=== PATIENT | female | born 1950 | race Caucasian/White ===

== ENCOUNTER 2016-09-12 10:50 | Observation (INO) | payer MEDICARE, OTHER ==
[~2016-09-12] VITALS: Ht 165.1 cm; Wt 56.8 kg
[~2016-09-12 10:50] MED LIST: MULTCAP13 PO
[2016-09-12 10:53] VITALS: BP 190/103; PULSE 104; RESP 20; TEMP 98.1; O2SAT 98
[2016-09-12 11:56] LABS: AUTOMATED NEUTROPHIL # 4.4 TH/MM3 (1.8-7.7); BASOPHIL # 0.1 TH/MM3 (0-0.2); BASOPHIL % 1.9 % (0.0-2.0); EOSINOPHIL # 0.1 TH/MM3 (0-0.4); EOSINOPHIL % 0.9 % (0.0-4.0); HEMATOCRIT 42.7 % (35.0-46.0); HEMO FLAGS DIFF FINAL; LYMPHOCYTE # 1.8 TH/MM3 (1.0-4.8); MEAN CELL VOLUME 87.7 FL (80.0-100.0); MEAN CORPUSCULAR HEMOGLOBIN 30.1 PG (27.0-34.0); MEAN CORPUSCULAR HGB CONC 34.3 % (32.0-36.0); MONO % 7.9 % (0.0-8.0); NEUT % 63.3 % (16.0-70.0); PLATELET COUNT 183 TH/MM3 (150-450); RED BLOOD COUNT 4.87 MIL/MM3 (4.00-5.30); RED CELL DISTRIBUTION WIDTH 13.8 % (11.6-17.2)
[2016-09-12 12:10] LABS: ANION GAP 6 MEQ/L (5-15); BICARBONATE 33.4 MEQ/L (21.0-32.0); BLOOD UREA NITROGEN 14 MG/DL (7-18); CHLORIDE 102 MEQ/L (98-107); GLOMERULAR FILTRATION RATE 53 ML/MIN (>89); POTASSIUM 3.5 MEQ/L (3.5-5.1); SODIUM (NA) 141 MEQ/L (136-145)
[2016-09-12 12:13] LABS: CREATINE KINASE 139 U/L (26-192)
[2016-09-12 12:26] LABS: CKMB 1.2 NG/ML (0.5-3.6)
[2016-09-12] MEDS ORDERED: ASPIRIN 325 MG TAB PO ONE (12:45)
--- NOTE | 2016-09-12 13:08 | PD ---
HPI Chief Complaint: Chest Pain Time Seen by Provider: 13:05 Travel History International Travel<30 days: No Contact w/Intl Traveler<30days: No Traveled to known affect area: No History of Present Illness HPI 66-year-old female that presents to the ED for evaluation of chest pain. Per patient she's had this chest pain on and off for the past couple of months but is progressively getting worse. Per patient she could've severe pain yesterday night when she went to the bathroom when she got back into her bed she started having severe chest pressure. Per patient the pain was 6 out of 10. Per patient she does have a long-standing history of anxiety and is to take alprazolam but she lacks not to take medications for anything. Per patient she doesn't take any meds at this time. She does state that she has a family history of father having had massive heart attack in the past. She herself has had a stress test about 2 or 3 years ago which was negative. She did contact her doctor today who recommended that she comes here to get a cardiac workup secondary to her age and history. She denies any abdominal pain. She denies any nausea or vomiting. She denies any other symptom. Per patient the chest pain does not cause any shortness of breath. Per patient he feels like a pressure. Per patient he was severe yesterday. Per patient she has noted that the chest pains seem to be more progressively more consecutive. And this is what scared her. She denies any history of smoking. She denies taking any aspirin. No blood thinners. No other medical process. No surgeries. PFSH Past Medical History Anxiety: Yes Diminished Hearing: No ?: Not Past Surgical History Hysterectomy: Yes Other Surgery: Yes (SKIN PROBLEMS) Social History Alcohol Use: No Tobacco Use: No Substance Use: No Allergies-Medications (Allergen,Severity, Reaction): Coded Allergies: Doxycycline (Verified Allergy, Severe, 10/09/12) Lovastatin (Verified Allergy, Severe, 10/09/12) Penicillin (Verified Allergy, Severe, 10/09/12) Tramadol (Verified Allergy, Severe, 10/09/12) Reported Meds & Prescriptions Reported Meds & Active Scripts Active Reported Multi Complete (Multiple Vitamins W/ Minerals) Complete Cap 1 PO Review of Systems Except as stated in HPI: all other systems reviewed are Neg Physical Exam Narrative GENERAL: SKIN: Warm and dry. HEAD: Atraumatic. Normocephalic. EYES: Pupils equal and round. No scleral icterus. No injection or drainage. ENT: No nasal bleeding or discharge. Mucous membranes pink and moist. NECK: Trachea midline. No JVD. CARDIOVASCULAR: Regular rate and rhythm. No murmurs, S3, S4. Chest pain is not reproducible with touch RESPIRATORY: No accessory muscle use. Clear to auscultation. Breath sounds equal bilaterally. GASTROINTESTINAL: Abdomen soft, non-tender, nondistended. Hepatic and splenic margins not palpable. MUSCULOSKELETAL: Extremities without clubbing, cyanosis, or edema. No obvious deformities. NEUROLOGICAL: Awake and alert. No obvious cranial nerve deficits. Motor grossly within normal limits. Five out of 5 muscle strength in the arms and legs. Normal speech. PSYCHIATRIC: Appropriate mood and affect; insight and judgment normal. Data Data Last Documented VS Vital Signs Date Time Temp Pulse Resp B/P Pulse Ox O2 Delivery O2 Flow Rate FiO2 09/12/16 12:48 78 20 99 Room Air 09/12/16 10:53 98.1 190/103 Orders Electrocardiogram (09/12/16 11:09) Complete Blood Count With Diff (09/12/16 11:09) Basic Metabolic Panel (Bmp) (09/12/16 11:09) Ckmb (Isoenzyme) Profile (09/12/16 11:09) Troponin I (09/12/16 11:09) CKMB (09/12/16 11:25) CKMB% (09/12/16 11:25) Chest, Single Ap (09/12/16 ) Aspirin (Aspirin) (09/12/16 12:45) Admit Order (Ed Use Only) (09/12/16 13:03) Labs Laboratory Tests Test 09/12/16 11:25 White Blood Count 7.0 TH/MM3 Red Blood Count 4.87 MIL/MM3 Hemoglobin 14.7 GM/DL Hematocrit 42.7 % Mean Corpuscular Volume 87.7 FL Mean Corpuscular Hemoglobin 30.1 PG Mean Corpuscular Hemoglobin 34.3 % Concent Red Cell Distribution Width 13.8 % Platelet Count 183 TH/MM3 Mean Platelet Volume 8.8 FL Neutrophils (%) (Auto) 63.3 % Lymphocytes (%) (Auto) 26.0 % Monocytes (%) (Auto) 7.9 % Eosinophils (%) (Auto) 0.9 % Basophils (%) (Auto) 1.9 % Neutrophils # (Auto) 4.4 TH/MM3 Lymphocytes # (Auto) 1.8 TH/MM3 Monocytes # (Auto) 0.6 TH/MM3 Eosinophils # (Auto) 0.1 TH/MM3 Basophils # (Auto) 0.1 TH/MM3 CBC Comment DIFF FINAL Differential Comment Sodium Level 141 MEQ/L Potassium Level 3.5 MEQ/L Chloride Level 102 MEQ/L Carbon Dioxide Level 33.4 MEQ/L Anion Gap 6 MEQ/L Blood Urea Nitrogen 14 MG/DL Creatinine 1.05 MG/DL Estimat Glomerular Filtration 53 ML/MIN Rate Random Glucose 93 MG/DL Calcium Level 9.9 MG/DL Total Creatine Kinase 139 U/L Creatine Kinase MB 1.2 NG/ML Troponin I LESS THAN 0.02 NG/ML MDM Medical Decision Making Medical Screen Exam Complete: Yes Emergency Medical Condition: Yes Medical Record Reviewed: Yes Interpretation(s) CBC & BMP Diagram 09/12/16 11:25 Troponin and CK-MB negative. EKG shows sinus rhythm with no sign of acute ischemia or arrhythmia with me and attending. Differential Diagnosis Chest pain versus atypical chest pain versus anxiety versus ACS Narrative Course 66-year-old female that presents to the ED for evaluation of chest pain. Patient was properly examined and was found to have signs and symptoms consistent appears to be chest pain. Patient for she does have risk factors including age and family history of heart disease. She does appear to have hypertension here today. My recommendation at this time is for cardiac workup. Patient is agreeable with this. Initial EKG and troponins labs were essentially unremarkable. Patient was reassured. At this time I do recommend admission to the chest pain center for further workup. She is agreeable with this. Patient was admitted to chest pain center. Procedures EKG Prior to Arrival: No Diagnosis Primary Impression: Chest pain in adult Admitting Information Admitting Physician Requests: Willam Crooks Sep 12, 2016 13:08
--- NOTE | 2016-09-12 13:08 | RADRPT ---
EXAM DATE/TIME: 09/12/2016 12:53 [facility] COMPARISON: CHEST SINGLE AP, October 09, 2012, 13:09. INDICATIONS : Chest discomfort for a week. MEDICAL HISTORY : None. SURGICAL HISTORY : None. ENCOUNTER: Initial ACUITY: 1 week PAIN SCORE: 2/10 LOCATION: Bilateral chest FINDINGS: A single view of the chest demonstrates hyperinflation which can be seen with COPD. No infiltrates a re seen. Heart is normal in size. The mediastinal contours are unremarkable. Osseous structures are intact. CONCLUSION: Hyperinflation which can be seen with COPD. No acute cardiopulmonary disease and no evidence for an infiltrate. Rufino Barcenas MD on September 12, 2016 at 13:06 Board Certified Radiologist. This report was verified electronically.
[2016-09-12] MEDS ORDERED: SODIUM CHLORIDE 0.9% FLUSH 5 ML FLUSH IVF PRN (13:30)
[2016-09-12] MEDS ORDERED: ACETAMINOPHEN 500 MG CPLT PO PRN (13:30)
[2016-09-12] MEDS ORDERED: ONDANSETRON HCL 4 MG/2 ML VIAL IV PRN (13:30)
[2016-09-12] MEDS ORDERED: NITROGLYCERIN 0.4 MG SL 25 TABS/BTL SL PRN (13:30)
[2016-09-12 14:00] VITALS: BP 180/101; PULSE 79; RESP 20; O2SAT 99
[2016-09-12] MEDS ORDERED: amLODIPine BESYLATE 5 MG TAB PO ONE (14:45)
[2016-09-12] MEDS ORDERED: THERTAB17 PO (15:14)
[2016-09-12] MEDS ORDERED: VITACAP7 PO (15:14)
[2016-09-12] MEDS ORDERED: [UNRECOGNIZED DRUG - OTHER] PO (15:14)
[2016-09-12] MEDS ORDERED: GLUC1CAP16 PO (15:14)
[2016-09-12] MEDS ORDERED: CHOL1CAP14 PO (15:14)
[2016-09-12] MEDS ORDERED: OMEGCAP19 PO (15:14)
[2016-09-12] MEDS ORDERED: LYSI1TAB4 PO (15:14)
[2016-09-12] MEDS ORDERED: [UNRECOGNIZED DRUG - OTHER] PO (15:14)
--- NOTE | 2016-09-12 16:25 | MH ---
cc: MAY MORENO MD DATE OF ADMISSION: 09/12/2016 1951 CHIEF COMPLAINT Chest pain. HISTORY OF PRESENT ILLNESS This is a 66-year-old patient who presents to the emergency room with the complaint of chest discomfort. This is actually progressive chest pain for the past 2-3 weeks located in her epigastric area with no radiation. Duration lasts anywhere from minutes to hours. There are no known precipitating factors although she does endorse that she is quite anxious and has been anxious for many years and believes this could be due to her anxiety. Relieving factors are unknown, states the pain gradually goes away. She has been trying calming methods such as camomile tea and also Rolaids, although these methods do not help. She called her primary care provider Dr. Cody Grant's office today to let him know about the chest discomfort and that last evening approximately 11:30 the chest pain was quite severe rated at a 9 out of 10 that lasted about 3 hours, and he encouraged her to follow up at the emergency room for further evaluation. PAST MEDICAL HISTORY Anxiety. PAST SURGICAL HISTORY 1. Right ovary removal. 2. Appendectomy. 3. Total hysterectomy. 4. Lipoma removal. 5. Carpal tunnel surgery. FAMILY HISTORY Family history is negative for any early onset cardiovascular disease. SOCIAL HISTORY She is semi-retired as of August 02, 2016. She is a life-long smoker. Denies any alcohol or illegal drug use. No known diabetes or hyperlipidemia. In fact she states she has high HDL and she is active, working out three to four times a week. As far as hypertension her primary care provider has been watching her for sometime in regards to her high blood pressure but has never been placed on medication yet, thinking her high blood pressure could be related to "white coat syndrome" or her anxiety. PAST CARDIAC TESTING She had a stress test approximately [id number] years ago on a treadmill with Dr. Karthikeyan Rothman which was negative and also wore a Holter monitor for 24 hours at that same time which was negative. She had this testing done for the same discomfort that she comes in with today. CURRENT MEDICATIONS None. She was prescribed Xanax last month. She tried half a tablet on occasion however, she was concerned that she was going to become dependent on her Xanax and so she quit using. ALLERGIC SHE IS ALLERGIC TO LOVASTATIN, DOXYCYCLINE, PENICILLIN AND TRAMADOL. REVIEW OF SYSTEMS GENERAL: She has been in her general state of health with no recent illness, fevers, chills or weakness of fatigue. HEENT: No headache or visual changes or dysphagia. CARDIOVASCULAR: As stated above. Currently she does have some chest discomfort and actually in her epigastric area that is rated at a 5 out of 10. RESPIRATORY: No shortness of breath, cough, wheeze, hemoptysis. ABDOMEN: No diarrhea, constipation, pain, distension, blood in stool or dark stool, bowel changes or nausea or vomiting. : No dysuria, urgency, frequency or hematuria. EXTREMITIES: No lower leg edema or pain. MUSCULOSKELETAL: No change in ROM. NEURO: No difficulty with balance, motor or sensory deficits. PSYCHE: Reports anxiety and phobias. No current depression. She follows with a psychologist on a regular basis. She started seeing a psychologist this past year for help with her anxiety. SKIN: No concerning lesions or rashes. PHYSICAL EXAMINATION VITAL SIGNS: Temperature is 98.1, pulse 104, respiratory 20 and blood pressure 190/103 on admission, last documented blood pressure 180/101 and she is 99% on room air. GENERAL: She is alert, well-nourished, well-developed, thin, in no acute distress, pleasant female. HEAD: Normocephalic, atraumatic. EYES: Sclerae are clear. Pupils are equal and round. NECK: Neck is supple. Trachea is midline. CARDIOVASCULAR: RRR without murmur, rub or gallop. No JVD. RESPIRATORY: Clear lungs throughout bilateral with no crackles, wheeze or rhonchi. She is nonlabored. Symmetrical chest rise. ABDOMEN: Abdomen is flat, soft, nontender, nondistended. No masses. Positive bowel tones. BACK: No scoliosis. EXTREMITIES: Pulses +2 x4. There is no dependent edema. MUSCULOSKELETAL: Normal tone x4, nontender. No obvious deformities. NEURO: CN II-XII grossly intact. Motor strength 5/5. Gait is within normal limits. PSYCHE: She is alert, oriented x3. Has a pleasant affect. She is mildly anxious with appropriate mood, insight and judgment. SKIN: Normal turgor, normal texture. Warm and dry with no lesions or rashes. LABORATORY DATA CBC is unremarkable. Chemistry has a creatinine of 1.05. Estimated GFR 53, carbon dioxide 53.4, otherwise unremarkable. First set of cardiac enzymes are negative. IMAGING STUDIES Chest x-ray read by the radiologist has an impression of hyper inflation which can be seen with COPD. No acute cardiopulmonary disease and no evidence of an infiltrate. EKG The first EKG is normal sinus rhythm with no ST or T segment changes. ASSESSMENT/PLAN 1. Chest pain. The patient has been admitted to the chest pain center, will undergo three sets of EKGs, cardiac enzymes and will be seen by the assembler leather goods, Dr. May Moreno. This has all been discussed with the patient and she is agreeable to this plan of care. Discussed the likelihood that she could either this evening and/or in the morning possibly undergo a stress test on the treadmill which she is agreeable to this plan of care. 2. Hypertension. Amlodipine 5 mg daily. Discussed with the patient in length the importance of tight blood pressure control, while indeed her blood pressure could be related to her anxiety, at this time, it is warranted for her to have a blood pressure medication and she is encouraged to have a low-salt diet and to follow up with primary care provider and take a blood pressure log. 3. Anxiety. Xanax has been offered to the patient, although she is adamant she does not want to take Xanax at this time and discussed with her options along with working with her psychologist medications, that she could try meditation, yoga and daily activity to help relieve some of the anxiety and stress that she is dealing with. Dictated by: FREEDOM Dias MD ADAIR Gongora/JOVON /3:18 PM /4:25 PM
[2016-09-12 16:30] LABS: PROTHROMBIN TIME - PATIENT 10.9 SEC (9.8-11.6)
[2016-09-12 16:51] LABS: CREATINE KINASE 135 U/L (26-192)
[2016-09-12 17:03] LABS: CKMB 1.1 NG/ML (0.5-3.6)
[2016-09-12] MEDS ORDERED: AMLO5TAB2 PO (17:16)
--- NOTE | 2016-09-12 17:17 | HHI.DCPOC ---
Discharge Care Plan Diagnosis: (1) Atypical chest pain (2) Hypertension (3) Anxiety Goals to Promote Your Health * To prevent worsening of your condition and complications * To maintain your health at the optimal level Directions to Meet Your Goals Take your medications as prescribed Follow your dietary instruction Follow activity as directed Keep your appointments as scheduled Take your immunizations and boosters as scheduled If your symptoms worsen call your PCP, if no PCP go to Urgent Care Center or Emergency Room Smoking is Dangerous to Your Health. Avoid second hand smoke Call the 24-hour hour crisis hotline for domestic abuse at Sherry Love Sep 12, 2016 17:17
[2016-09-12 17:39] VITALS: O2SAT 99
[2016-09-12] MEDS ORDERED: SODIUM CHLORIDE 0.9% FLUSH 5 ML FLUSH IVF SCH (21:00)
[2016-09-13] MEDS ORDERED: ASPIRIN 325 MG TAB PO SCH (09:00)
--- NOTE | 2016-09-13 15:03 | EKG ---
Date Performed: 09/12/2016 Time Performed: 15:44:32 PTAGE: 66 years EKG: NORMAL Sinus rhythm ABNORMAL RHYTHM ECG PREVIOUS TRACING : 10/09/2012 12.36 Since previous tracing, no significant change noted DOCTOR: Marcus Harris Interpretating Date/Time 09/13/2016 15:02:15
--- NOTE | 2016-09-13 15:03 | EKG ---
Date Performed: 09/12/2016 Time Performed: 11:18:33 PTAGE: 66 years EKG: Sinus rhythm POSSIBLE LEFT ATRIAL ENLARGEMENT BORDERLINE ECG NO PREVIOUS TRACING DOCTOR: Marcus Harris Interpretating Date/Time 09/13/2016 15:02:22
--- NOTE | 2016-09-13 15:04 | TR ---
Date Performed: 09/12/2016 Time Performed: 16:45:03 DOCTOR: Marcus Harris DRUG LIST: CLINICAL HISTORY: REASON FOR TEST: Chest pain REASON FOR ENDING: OBSERVATION: CONCLUSION: Sameer protocol completed. Stopped sec to reaching target heart rate and leg fatigue. Maximum QQ=990 Target HR Achieved=93.0% Maximum ZV=396/98 Total Exercise Time=6:01. No reprod chest discomfort. Rare PVC. No st t seg changes to sugg ischemia. Hypertensive bp response. Recovery quick and unremarkable. COMMENTS: Patient exercised using the Sameer protocol. No electrocardiographic changes were seen to suggest ischemia. Hemodynamic response to exercise was normal. No significant arrhythmia was prese nt.
== END 2016-09-12 17:46 | disposition home or self-care (01) ==
LOC: NEPE 10:50 → NEDA 13:05 → NEDH 17:23
PROVIDERS: ADMIT Internal Medicine Cardiovascular Disease; ATTEND Internal Medicine Cardiovascular Disease
DX: R07.89 Other chest pain (principal); I10 Essential (primary) hypertension; F41.9 Anxiety disorder, unspecified; Z82.49 Family history of ischemic heart disease and other diseases of the circulatory system
CPT/HCPCS: 71010; 80048; 82550; 82552; 84484; 85025; 85610; 85730; 93005; 93017; 99285; G0378